=== PATIENT | female | born 2000 | race Caucasian/White ===

== ENCOUNTER 2020-03-16 12:42 | Observation (INO) ==
[2020-03-16 14:02] LABS: Basophils # (auto) 0.01 K/uL (0-0.2); Basophils % (auto) 0.1 %; Eosinophils # (auto) 0.09 K/uL (0-0.5); Eosinophils % (auto) 0.7 %; Hematocrit (blood only) 38.7 % (37-47); Hemoglobin 12.6 g/dL (12.0-16.0); Immature Granulocytes # (auto) 0.02 K/uL (0.00-0.02); Immature Granulocytes % (auto) 0.2 %; Lymphocytes # (auto) 1.26 K/uL (1.2-3.4); Lymphocytes % (auto) 9.8 %; Mean Corpuscular Hgb Conc 32.6 g/dL (32-36); Mean Platelet Volume 10.6 fL (7.4-10.4); Monocytes # (auto) 0.74 K/uL (0.11-0.59); Monocytes % (auto) 5.8 %; Neutrophils % (auto) 83.4 %; Platelet Count 282 K/uL (130-400); RDW Coefficient of Variation 13.4 % (11.5-14.5); RDW Standard Deviation 44.1 fL (36.4-46.3); Red Blood Count 4.35 M/uL (4.2-5.4); White Blood Count 12.82 K/uL (4.8-10.8)
[2020-03-16 14:26] LABS: BUN Creatinine Ratio 8.9 (10-20); Calcium 9.2 mg/dl (8.5-10.1); Est GFR (Non-African American) 100.1; Magnesium 2.4 mg/dl (1.8-2.4)
--- NOTE | 2020-03-16 14:26 | Electrocardiogram Report ---
Test Reason : Blood Pressure : / mmHG Vent. Rate : 056 BPM Atrial Rate : 056 BPM P-R Int : 148 ms QRS Dur : 080 ms QT Int : 418 ms P-R-T Axes : 054 092 030 degrees QTc Int : 403 ms Sinus bradycardia with sinus arrhythmia Rightward axis Borderline ECG No previous ECGs available Confirmed by Jorge Luis Zhao ([id number]) on 03/16/2020 2:25:45 PM Referred By: Confirmed By:Alex Zhao
[2020-03-16 14:28] LABS: Bilirubin,Total 0.7 mg/dl (0.2-1)
[2020-03-16 14:35] LABS: Pregnancy Test, Serum Negative (Negative)
--- NOTE | 2020-03-16 14:36 | Emergency Department Note ---
History of Present Illness General Chief complaint: Abdominal Pain Stated complaint: SEVERE ADB PAIN Time Seen by Provider: 03/16/20 13:21 Source: patient Mode of arrival: ambulatory Limitations: no limitations History of Present Illness Provider complaint: abdominal pain Onset (ago): day(s) 1 Location: abdomen Radiation: abdomen Severity: moderate Pain Consistency: + colicky Maximum Pain Intensity: 6 Current Pain Intensity: 6 Quality: + constant Relieved By: + none Exacerbated By: + movement Associated symptoms: + denies other symptoms Treatments prior to arrival: NSAID This is a 19-year-old female who presents the emergency department complaining of abdominal pain. Patient states last night after dinner she developed some right lower quadrant abdominal pain and thought it was perhaps cramping. Patient states she laid down for a while, and then after sitting up the pain was slightly improved. She was able to go to bed, however around 4 AM woke up with worsening bilateral lower quadrant pain, however still worse on the right-hand side. Patient states she tried to take an Advil, eventually was able to fall back to sleep however when she awoke she still had the pain. Patient had a difficult time getting comfortable and feels most comfortable with her legs pulled and were flexed. Patient denies fevers or chills, nausea or vomiting. Patient denies any recent change in her bowel movements or urine. No recent symptoms. Patient did just finished her period 2 days ago after having taken a course of Provera to help jumpstart her cycles. No prior history of ovarian cyst, endometriosis, uterine fibroids. No known family history of problems. No prior abdominal surgeries. Patient denies any recent change in activity or diet, no known sick contacts or exposures. Pt is not sexually active. Pt seen during a time of high acuity and national emergency pandemic while wearing PPE. Home Medications Home Medications Medication Instructions Recorded Confirmed Type albuterol sulfate 2 puff INHALATION Q4 PRN 03/16/20 03/16/20 History azelaic acid [Finacea] 1 applic TOPICAL DAILY 03/16/20 03/16/20 History clindamycin phosphate [Cleocin T] 1 applic TOPICAL BID 03/16/20 03/16/20 History montelukast 10 mg PO DAILY PRN 03/16/20 03/16/20 History tretinoin [Retin-A] 1 applic TOPICAL HS 03/16/20 03/16/20 History oxycodone-acetaminophen [Percocet] 1 - 2 tab PO Q4H PRN #15 tab 03/17/20 Rx Allergies Allergy/AdvReac Type Severity Reaction Status Date / Time No Known Allergies Allergy Verified 03/16/20 18:45 Past Med/Surg History Social History Smoking Status: Never smoker Do You Dip or Chew Tobacco: No; Hx Alcohol Use: Yes Hx Substance Use: No Preferred Language: Japanese Communication Ability: Effective Beliefs That Will Affect Care: None Current Living Situation: Other Current Living Situation Comment: roommates Feels Safe at Home: Yes Safety Concerns: Feels Safe At This Time Review of Systems See HPI for pertinent positives & negatives. and A total of 10 systems reviewed and were otherwise negative Physical Exam Vital Signs Vital Signs - 24 hr 03/16/20 17:21 03/16/20 18:37 03/16/20 21:15 Temperature 36.4 C L Temperature Source Temporal Artery Scan Pulse Rate [Apical] 65 Pulse Rate [Right Finger] 52 L 54 L Pulse Rhythm [Apical] Regular Respiratory Rate 19 19 16 Respiratory Effort / Characteristics Non-Labored Spontaneous Respiratory Depth Normal Respiratory Pattern Regular Blood Pressure [Left Arm] 103/64 Blood Pressure [Right Arm] 95/61 L 104/62 Blood Pressure Mean [Left Arm] 77 Blood Pressure Mean [Right Arm] 72 76 Blood Pressure Position [Left Arm] Lying Pulse Oximetry 100 95 100 Oxygen Delivery Method Oxymask Oxygen Flow Rate 8 GENERAL: alert, well appearing, well nourished, no distress, non-toxic EYE EXAM: normal conjunctiva, PERRL and EOM's grossly intact OROPHARYNX: no exudate, no erythema, lips, buccal mucosa, and tongue normal and mucous membranes are moist NECK: supple, no nuchal rigidity, no adenopathy, non-tender LUNGS: Clear to auscultation. Normal chest wall mechanics, no w/r/r HEART: no murmurs, S1 normal and S2 normal ABDOMEN: abdomen soft, tenderness in the right lower quadrant at McBurney's point, normo-active bowel sounds, no masses, no guarding, however mild rebound tenderness, negative Rovsing's BACK: Back is symmetrical on inspection and there is no deformity, no midline tenderness, no CVA tenderness. SKIN: no rashes and no bruising UPPER EXTREMITIES: upper extremities are grossly normal. FROM, nml pulses b/l. LOWER EXTREMITIES: No pitting edema. FROM, nml pulses b/l. NEURO EXAM: Normal sensorium, cranial nerves II-XII grossly intact, normal speech, no gross weakness of arms, no gross weakness of legs. Gross sensation intact. Course Course 1535: Pt updated on results so far. Pt drinking for CT. 1542: Case signed out to Dr. Goldman. Awaiting CT. If negative, pt may also need US pelvis. Administered Medications Acetaminophen (Ofirmev) 1,000 mg in 100 mls @ 400 mls/hr IV Q8H TING Stop: 03/20/20 00:59 Last Infusion: 03/17/20 09:56 Dose: 0 mls/hr Documented by: [id number] Admin: 03/17/20 09:22 Dose: 400 mls/hr Documented by: [id number] Infusion: 03/17/20 01:26 Dose: 0 mls/hr Documented by: [id number] Admin: 03/17/20 00:56 Dose: 400 mls/hr Documented by: [id number] Miscellaneous (Azelaic Acid [Finacea]: Order Awaiting Action) 1 ea N/A QS TING Stop: 04/16/20 07:59 Last Admin: 03/17/20 07:18 Dose: Not Given Documented by: [id number] Miscellaneous (Clindamycin Phosphate [Cleocin T]: Order Awaiting Action) 1 ea N/A QS TING Stop: 04/16/20 07:59 Last Admin: 03/17/20 07:19 Dose: Not Given Documented by: [id number] Miscellaneous (Tretinoin [Retin-A]: Order Awaiting Action) 1 ea N/A QS TING Stop: 04/16/20 07:59 Last Admin: 03/17/20 07:19 Dose: Not Given Documented by: [id number] Oxycodone HCl (Oxycodone Hcl Ir 5 Mg Tab (Immediate Release)) 5 mg PO Q6H PRN PRN Reason: Pain Stop: 03/30/20 22:28 Last Admin: 03/17/20 14:31 Dose: 5 mg Documented by: [id number] Discontinued Medications Al Hydrox/Mg Hydrox/Simethicone (Aluminum/Magnesium Susp 30 Ml Udc) 30 ml PO NOW STA Stop: 03/17/20 13:15 Last Admin: 03/17/20 13:22 Dose: 30 ml Documented by: [id number] Fentanyl Citrate (Fentanyl Citrate 100 Mcg/2 Ml Vial) 25 mcg IV Q5M PRN PRN Reason: PACU Use Only-Pain Stop: 03/17/20 03:06 Last Admin: 03/16/20 21:34 Dose: 25 mcg Documented by: [id number] Fentanyl Citrate (Fentanyl Citrate 100 Mcg/2 Ml Vial) Confirm Administered Dose 100 mcg .ROUTE .STK-MED ONE Stop: 03/16/20 21:33 Last Admin: 03/16/20 22:34 Dose: Not Given Documented by: [id number] Hydromorphone HCl (Hydromorphone Inj 0.5 Mg/0.5 Ml Syr) 0.5 mg IV Q15M PRN PRN Reason: Pain Stop: 03/30/20 17:34 Last Admin: 03/16/20 18:54 Dose: 0.5 mg Documented by: [id number] Admin: 03/16/20 17:42 Dose: 0.5 mg Documented by: [id number] Sodium Chloride (Nss 1000ml) 1,000 mls @ 999 mls/hr IV .Q1H1M ONE Stop: 03/16/20 18:28 Last Infusion: 03/16/20 18:38 Dose: 0 mls/hr Documented by: [id number] Admin: 03/16/20 17:42 Dose: 999 mls/hr Documented by: [id number] Cefoxitin Sodium (Mefoxin) 2,000 mg in 60 mls @ 100 mls/hr IV NOW STA Stop: 03/16/20 18:03 Last Infusion: 03/16/20 19:07 Dose: 0 mls/hr Documented by: [id number] Admin: 03/16/20 18:38 Dose: 100 mls/hr Documented by: [id number] Lactated Ringer's (Lr) 1,000 mls @ 75 mls/hr IV .[id number] TING Stop: 04/15/20 22:28 Last Infusion: 03/17/20 13:11 Dose: 0 mls/hr Documented by: [id number] Admin: 03/17/20 11:21 Dose: 75 mls/hr Documented by: [id number] Infusion: 03/17/20 11:21 Dose: 0 mls/hr Documented by: [id number] Admin: 03/16/20 23:48 Dose: 75 mls/hr Documented by: [id number] Ioversol (Ioversol 100ml) 94 ml IV ONCE ONE Stop: 03/16/20 16:58 Last Admin: 03/16/20 16:58 Dose: 94 ml Documented by: [id number] Lidocaine/Epinephrine (Lidocaine/Epinephrine 1% 20 Ml Vial) Confirm Administered Dose 20 ml .ROUTE .STK-MED ONE Stop: 03/16/20 18:53 Last Admin: 03/16/20 20:54 Dose: 14 ml Documented by: [id number] Ondansetron HCl (Ondansetron Inj 2 Mg/Ml 2 Ml Vial) 4 mg IV NOW STA Stop: 03/16/20 17:36 Last Admin: 03/16/20 17:42 Dose: 4 mg Documented by: [id number] Medical Decision Making Differential Diagnosis Differential diagnoses includes but is not limited to gastritis, peptic ulcer disease, GERD, gallbladder disease, pancreatitis, small bowel obstruction, acute coronary syndrome, pericarditis, ischemic bowel, irritable bowel disease, irritable bowel syndrome, appendicitis, diverticulitis, malignancy, hernia, urinary tract infection, torsion, [/ectopic (if female)], perforation, trauma, infectious. Medical Records Attestation: I reviewed the patient's medical records. Home Medications Current Medication List: was personally reviewed by me Laboratory Data Attestation: I reviewed the patient's lab results. Result diagrams: 03/16/20 11:34 03/16/20 11:34 Lab Results 03/16/20 03/16/20 03/16/20 Range/Units 11:34 11:34 11:34 WBC 12.82 H (4.8-10.8) K/uL RBC 4.35 (4.2-5.4) M/uL Hgb 12.6 (12.0-16.0) g/dL Hct 38.7 (37-47) % MCV 89.0 (80-100) fL MCH 29.0 (25-34) pg MCHC 32.6 (32-36) g/dL RDW Std Deviation 44.1 (36.4-46.3) fL RDW Coeff of Kika 13.4 (11.5-14.5) % Plt Count 282 (130-400) K/uL MPV 10.6 H (7.4-10.4) fL Immature Gran % (Auto) 0.2 % Neut % (Auto) 83.4 % Lymph % (Auto) 9.8 % [place] % (Auto) 5.8 % Eos % (Auto) 0.7 % Baso % (Auto) 0.1 % Neut # (Auto) 10.70 H (1.4-6.5) K/uL Lymph # (Auto) 1.26 (1.2-3.4) K/uL [place] # (Auto) 0.74 H (0.11-0.59) K/uL Eos # (Auto) 0.09 (0-0.5) K/uL Baso # (Auto) 0.01 (0-0.2) K/uL Immature Gran # (Auto) 0.02 (0.00-0.02) K/uL Sodium 140 (136-145) mmol/L Potassium 4.0 (3.5-5.1) mmol/L Chloride 107 (98-107) mmol/L Carbon Dioxide 29 (21-32) mmol/L Anion Gap 4.0 (3-11) BUN 7 (7-18) mg/dl Creatinine 0.84 (0.6-1.2) mg/dl Est Cr Clr Drug Dosing 100.0 ml/min Est GFR ( Amer) 116.0 Est GFR (Non-Af Amer) 100.1 BUN/Creatinine Ratio 8.9 L (10-20) Glucose 80 (70-99) mg/dl Calcium 9.2 (8.5-10.1) mg/dl Magnesium 2.4 (1.8-2.4) mg/dl Total Bilirubin 0.7 (0.2-1) mg/dl AST 14 L (15-37) U/L ALT 20 (12-78) U/L Alkaline Phosphatase 76 (45-117) U/L Total Protein 8.0 (6.4-8.2) gm/dl Albumin 4.0 (3.4-5.0) gm/dl Globulin 4.0 (2.5-4.0) gm/dl Albumin/Globulin Ratio 1.0 (0.9-2) Lipase 89 (73-393) U/L HCG, Qual Negative (Negative) Urine Color Urine Appearance (Clear) Urine pH (4.5-7.5) Ur Specific [place] (1.000-1.030) Urine Protein (Negative) Urine Glucose (UA) (Negative) Urine Ketones (Negative) Urine Blood (Negative) Urine Nitrite (Negative) Urine Bilirubin (Negative) Urine Urobilinogen (Negative) Ur Leukocyte Esterase (Negative) Urine WBC (Auto) (0-5) /hpf Urine RBC (Auto) (0-4) /hpf U Hyaline Cast (Auto) (0-5) /lpf U Epithel Cells (Auto) (0-5) /lpf Urine Bacteria (Auto) (Negative) COVID-19 Eval Order SARS-CoV-2, RNA, NAAT (NEGATIVE) 03/16/20 03/16/20 03/16/20 Range/Units 15:38 18:37 18:37 WBC (4.8-10.8) K/uL RBC (4.2-5.4) M/uL Hgb (12.0-16.0) g/dL Hct (37-47) % MCV (80-100) fL MCH (25-34) pg MCHC (32-36) g/dL RDW Std Deviation (36.4-46.3) fL RDW Coeff of Kika (11.5-14.5) % Plt Count (130-400) K/uL MPV (7.4-10.4) fL Immature Gran % (Auto) % Neut % (Auto) % Lymph % (Auto) % [place] % (Auto) % Eos % (Auto) % Baso % (Auto) % Neut # (Auto) (1.4-6.5) K/uL Lymph # (Auto) (1.2-3.4) K/uL [place] # (Auto) (0.11-0.59) K/uL Eos # (Auto) (0-0.5) K/uL Baso # (Auto) (0-0.2) K/uL Immature Gran # (Auto) (0.00-0.02) K/uL Sodium (136-145) mmol/L Potassium (3.5-5.1) mmol/L Chloride (98-107) mmol/L Carbon Dioxide (21-32) mmol/L Anion Gap (3-11) BUN (7-18) mg/dl Creatinine (0.6-1.2) mg/dl Est Cr Clr Drug Dosing ml/min Est GFR ( Amer) Est GFR (Non-Af Amer) BUN/Creatinine Ratio (10-20) Glucose (70-99) mg/dl Calcium (8.5-10.1) mg/dl Magnesium (1.8-2.4) mg/dl Total Bilirubin (0.2-1) mg/dl AST (15-37) U/L ALT (12-78) U/L Alkaline Phosphatase (45-117) U/L Total Protein (6.4-8.2) gm/dl Albumin (3.4-5.0) gm/dl Globulin (2.5-4.0) gm/dl Albumin/Globulin Ratio (0.9-2) Lipase (73-393) U/L HCG, Qual (Negative) Urine Color Yellow Urine Appearance Clear (Clear) Urine pH 7.5 (4.5-7.5) Ur Specific [place] 1.012 (1.000-1.030) Urine Protein Negative (Negative) Urine Glucose (UA) Negative (Negative) Urine Ketones Negative (Negative) Urine Blood Negative (Negative) Urine Nitrite Negative (Negative) Urine Bilirubin Negative (Negative) Urine Urobilinogen Negative (Negative) Ur Leukocyte Esterase Trace H (Negative) Urine WBC (Auto) 1-5 (0-5) /hpf Urine RBC (Auto) 0-4 (0-4) /hpf U Hyaline Cast (Auto) 1-5 (0-5) /lpf U Epithel Cells (Auto) >30 H (0-5) /lpf Urine Bacteria (Auto) Negative (Negative) COVID-19 Eval Order Covid19 [facility]Now [facility] SARS-CoV-2, RNA, NAAT NEGATIVE (NEGATIVE) Blood Pressure Blood Pressure Findings: Normal blood pressure MDM Narrative Patient presenting here with story concerning for lower quadrant abdominal pain worse on the right. Patient with no prior surgical history, no history of gynecologic problems and no recent or BARYTES GRINDER symptoms. Patient found with lab results to have mild leukocytosis, and were otherwise reassuring. Due to concer n for appendicitis, a CT of the abdomen and pelvis with contrast was ordered. Patient signed out awaiting CT and reevaluation. I did discuss with the patient that if the CT was negative she may benefit from additional pelvic ultrasound to rule out other gynecologic pathology although my suspicion for this is lower at this time. Patient remained hemodynamically stable and afebrile in the emergen cy room. Patient is not anticoagulated. Patient denies any other illness or exposure to coronavirus. I have a low suspicion for GI bleed, perforation, diverticulitis, mesenteric ischemia, bowel obstruction, volvulus, ectopic, or vascular etiology. An order was placed for continuous cardiac monitoring. The monitor shows a rate of _68_ with _normal sinus_ rhythm. Impression & Plan Abdominal pain Discharge Plan Visit Data Chief Complaint: Abdominal Pain Stated Complaint: SEVERE ADB PAIN ED Provider: Franklin Chen Discharge Problem: Abdominal pain Patient Disposition: Still a Patient Discharge Instructions Interventions: ED Discharge Assessment Last Done: 03/16/20 19:10 Discharge Problem: Abdominal pain Qualifiers: Abdominal location: lower abdomen, unspecified Qualified Code(s): R10.30 - Lower abdominal pain, unspecified
[2020-03-16 15:47] LABS: Appearance Urine Clear (Clear); Bacteria Urine Automated Negative (Negative); Bilirubin Urine Negative (Negative); Blood Urine Negative (Negative); Color Urine Yellow; Epithelial Cell Urine Auto >30 /lpf (0-5); Glucose Urine UA Negative (Negative); Ketones Urine Negative (Negative); Leukocyte Esterase Urine Trace (Negative); Nitrite Urine Negative (Negative); Protein Urine Negative (Negative); RBC Urine Automated 0-4 /hpf (0-4); Specific Gravity Urine 1.012 (1.000-1.030); Urobilinogen Urine Negative (Negative); pH Urine 7.5 (4.5-7.5)
[2020-03-16] MEDS ORDERED: IOVERSOL 100ml IV ONE (16:57)
--- NOTE | 2020-03-16 17:13 | CT Scan Report ---
ABDOMEN AND PELVIS CT WITH IV AND ORAL CONTRAST CT DOSE: 300.55 mGy.cm HISTORY: Right lower quadrant abdominal pain. TECHNIQUE: Multiaxial CT images of the abdomen and pelvis were performed following the use of intrave nous and oral contrast. A dose lowering technique was utilized adhering to the principles of ALARA. COMPARISON STUDY: None. FINDINGS: The lung bases are clear. No pneumoperitoneum. No pneumatosis. No fractures within the visu alized osseous structures. There is a 2 mm hypodense lesion within the right hepatic dome. This is te chnically too small to characterize but favors a cyst. The gallbladder, pancreas, spleen, adrenal gla nds, and kidneys are within normal limits. No hydronephrosis. No retroperitoneal lymphadenopathy. The main portal vein is patent. The bladder, uterus, and ovaries are unremarkable. Trace pelvic free flu id. No evidence for bowel obstruction. The appendix is identified within the right lower quadrant on images 304 through 342. The tip is distended up to 9 mm. There is mild wall thickening and mild peria ppendiceal fat stranding. The tip is filled with fluid. Therefore, findings are consistent with a mil d acute appendicitis. IMPRESSION: 1. Above findings consistent with mild acute appendicitis. 2. Trace pelvic free fluid. ACT 112: Negative or not required by law. Electronically signed by: Wilfredo Sellers M.D. 03/16/2020 5:11 PM
[2020-03-16] MEDS ORDERED: cefOXitin 2,000 MG/60 ML BAG IV STA (17:28)
[2020-03-16] MEDS ORDERED: SODIUM CHLORIDE 0.9% 1000ML 1,000 ML IV ONE (17:28)
[2020-03-16] MEDS ORDERED: ONDANSETRON INJ 2 MG/ML 2 ML VIAL IV STA (17:35)
--- NOTE | 2020-03-16 17:37 | Emergency Department Note ---
ED Visit Note The patient was taken in signout from Dr. Hewitt at the change of shift. Please see that note for details. The patient was pending CT scan of the abdomen pelvis due to concern for appendicitis. CT returned consistent with mild appendicitis. Patient was informed. I gave my usual and customary discussion regarding this issue. Normal saline, Mefoxin, Dilaudid and Zofran were ordered. Consultation made with general surgery for further management. Patient was evaluated in the ER by Dr. Oscar Vo for further management. .
[2020-03-16] MEDS: HYDROmorphone INJ 0.5 MG/0.5 ML SYR IV PRN ×2 (17:42→18:54)
--- NOTE | 2020-03-16 18:45 | History & Physical Report ---
Date of Service March 16, 2020 Assessment & Plan (1) Appendicitis, acute: Acute appendicitis by CAT scan and clinically was discussed with the patient and also long discussion with her mother who is [facility] by phone Options of therapy would also be acute appendicitis treated with antibiotics for period of time but certainly this has a high recurrence rate that eventually she will be of another attack for given her overall good health I recommend to proceed with laparoscopic appendectomy Risk and complications of the surgery including bleeding infection converting to an open procedure injury to other organs was explained to the patient and she would like to proceed accordingly also discussed with the other and patient the anticipated recovery time Covid test rapid test is pending at this time Preop antibiotics will be given we will put sequential compression stockings All questions were answered to her and her mother Present on Admission?: Yes History of Present Illness 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 last evening progressive became more significant and came into the emergency room where she was found to have by CAT scan acute appendicitis 9 mm appendix with periappendiceal infiltration She denies any vomiting although somewhat nauseated she had a small bite of food at 11 this morning and has not had anything to eat or drink except slight water about 5:00 Past history is pretty much unremarkable not having any other surgeries she does have some abnormal cramping with her menses no longstanding Primary Care Provider: NO PCP Home Medications Home Medications Medication Instructions Recorded Confirmed Type albuterol sulfate 2 puff INHALATION Q4 PRN 03/16/20 03/16/20 History azelaic acid [Finacea] 1 applic TOPICAL DAILY 03/16/20 03/16/20 History clindamycin phosphate [Cleocin T] 1 applic TOPICAL BID 03/16/20 03/16/20 History montelukast 10 mg PO DAILY PRN 03/16/20 03/16/20 History tretinoin [Retin-A] 1 applic TOPICAL HS 03/16/20 03/16/20 History Past Med/Surg History Social History Smoking Status: Never smoker Feels Safe at Home: Yes Physical Exam Physical Exam: She is alert coherent friend at the bedside appears comfortable Constitutional: WD/WN, vitals as above well developed, well nourished and + thin Eyes: Sclera nonicteric conjunctiva slightly injected ENMT: Grossly normal Neck: trachea midline, no thyromegaly Respiratory: normal respiratory effort Cardiovascular: Rate/Rhythm: regular rate Chest (Breasts): Chest: normal inspection of chest Gastrointestinal (Abdomen): No abdominal distention pain localized to right lower quadrant with rebound at McBurney's point Results & Data Results & Data ([facility]) Vital Signs (Past 12 Hours) Vital Signs Temp Pulse Pulse Resp BP BP Pulse Ox 03/16/20 17:21 52 L 19 95/61 L 100 03/16/20 12:58 36.7 C 92 H 18 101/67 98 PG Care Time/CCT Total # of Minutes Spent Total Time Spent with Patient: Total time spent is greater than 50% in coordination of care (as documented) at patient's floor/unit and/or counseling patient: Coding Level of Care Code 96383 OBS Care - Level 3 Diagnoses Appendicitis, acute K35.80
[2020-03-16] MEDS ORDERED: LIDOCAINE/EPINEPHRINE 1% 20 ML VIAL ONE (18:52)
[2020-03-16] MEDS ORDERED: ONDANSETRON INJ 2 MG/ML 2 ML VIAL ONE (18:57)
[2020-03-16] MEDS ORDERED: NEOSTIGMINE METHYLSULFATE 5 MG/5 ML SYR ONE (18:57)
[2020-03-16] MEDS ORDERED: SUCCINYLCHOLINE CHLORIDE 20 MG/ML 10 ML VIAL IV ONE (18:57)
[2020-03-16] MEDS ORDERED: GLYCOPYRROLATE 0.2 MG/ML VIAL ONE (18:57)
[2020-03-16] MEDS ORDERED: PROPOFOL IV EMULSION 10 MG/ML 20 ML VIAL IV ONE (18:57)
[2020-03-16] MEDS ORDERED: ROCURONIUM BROMIDE 10 MG/ML 5 ML VIAL IV ONE (18:57)
[2020-03-16] MEDS ORDERED: MIDAZOLAM HCL 1 MG/ML 2ML VIAL ONE (18:57)
[2020-03-16] MEDS ORDERED: DEXAMETHASONE SOD INJ 4 MG/ML VIAL ONE (18:57)
[2020-03-16] MEDS ORDERED: fentaNYL citrate 100 MCG/2 ML VIAL ONE ×2 (18:58→21:32)
[2020-03-16] MEDS ORDERED: HYDROmorphone INJ 1 MG/ML SYRINGE IV PRN (19:06)
[2020-03-16] MEDS ORDERED: ATROPINE SULFATE 0.1 MG/ML 10ML SYR IV PRN (19:06)
[2020-03-16] MEDS ORDERED: ePHEDrine sulfate 50 MG/ML AMP IV PRN (19:06)
[2020-03-16] MEDS ORDERED: ONDANSETRON INJ 2 MG/ML 2 ML VIAL IV PRN ×2 (19:06→22:29)
[2020-03-16] MEDS ORDERED: fentaNYL citrate 100 MCG/2 ML VIAL IV PRN (19:06)
--- NOTE | 2020-03-16 19:08 | Anesthesiology Consultation ---
Date of Service March 16, 2020 Assessment & Plan (1) Encounter for pre-operative examination: Chart Review Chart Review: Acceptable Risk for Surgery and Patient NOT seen in Pre Admission Testing covid neg 03/16/2020 Consults Requested none History Surgery Operation Date: 03/16/20 19:15 Proposed Procedures p Laparoscopic Appendectomy(Not Applicable) - Oscar Vo MD Height/Weight Height: 5 ft 6 in Weight: 61.8 kg Allergies Allergy/AdvReac Type Severity Reaction Status Date / Time No Known Allergies Allergy Verified 03/16/20 18:45 Medications Home Medications Medication Instructions Recorded Confirmed Last Taken albuterol sulfate 2 puff INHALATION Q4 PRN 03/16/20 03/16/20 Unknown azelaic acid [Finacea] 1 applic TOPICAL DAILY 03/16/20 03/16/20 Unknown clindamycin phosphate [Cleocin T] 1 applic TOPICAL BID 03/16/20 03/16/20 Unknown montelukast 10 mg PO DAILY PRN 03/16/20 03/16/20 Unknown tretinoin [Retin-A] 1 applic TOPICAL HS 03/16/20 03/16/20 Unknown Active Medications Generic Name Dose Route Start Last Admin Trade Name Freq PRN Reason Stop Dose Admin Hydromorphone HCl 0.5 mg 03/16/20 17:35 03/16/20 18:54 Hydromorphone Inj 0.5 Mg/0.5 Ml Syr IV 03/30/20 17:34 0.5 mg Q15M PRN Administration Pain NPO Date Last Intake of Fluids: 03/16/20 Time Last Intake of Fluids: 17:00 Date Last Intake of Solids: 03/15/20 Past Medical History healthy Exercise / Class Metabolic Activity 1 > 8 Run/Swim/Ski/Tennis Past Anesthesia History No Hx of Anesthesia Complications and No Family Hx of Anesthesia Complications History of PONV No Hx of PONV and No Hx of Motion Sickness Social History Smoking Status: Never smoker Do You Dip or Chew Tobacco: No Hx Alcohol Use: Yes Physical Exam Vital Signs Last Vital Signs Temp 36.7 C 03/16/20 12:58 Pulse 54 L 03/16/20 18:37 Resp 19 03/16/20 18:37 BP 104/62 03/16/20 18:37 Pulse Ox 95 03/16/20 18:37 Testing Laboratory Results 03/16/20 11:34 03/16/20 11:34 Urine Color Yellow 03/16/20 15:38 Urine Appearance Clear (Clear) 03/16/20 15:38 Urine pH 7.5 (4.5-7.5) 03/16/20 15:38 Ur Specific [place] 1.012 (1.000-1.030) 03/16/20 15:38 Urine Protein Negative (Negative) 03/16/20 15:38 Urine Glucose (UA) Negative (Negative) 03/16/20 15:38 Urine Ketones Negative (Negative) 03/16/20 15:38 Urine Nitrite Negative (Negative) 03/16/20 15:38 Ur Leukocyte Esterase Trace (Negative) H 03/16/20 15:38 Urine WBC (Auto) 1-5 /hpf (0-5) 03/16/20 15:38 Urine RBC (Auto) 0-4 /hpf (0-4) 03/16/20 15:38 U Hyaline Cast (Auto) 1-5 /lpf (0-5) 03/16/20 15:38 U Epithel Cells (Auto) >30 /lpf (0-5) H 03/16/20 15:38 Urine Bacteria (Auto) Negative (Negative) 03/16/20 15:38 Other Testing ABDOMEN AND PELVIS CT WITH IV AND ORAL CONTRAST CT DOSE: 300.55 mGy.cm HISTORY: Right lower quadrant abdominal pain. TECHNIQUE: Multiaxial CT images of the abdomen and pelvis were performed following the use of intravenous and oral contrast. A dose lowering technique was utilized adhering to the principles of ALARA. COMPARISON STUDY: None. FINDINGS: The lung bases are clear. No pneumoperitoneum. No pneumatosis. No fractures within the visualized osseous structures. There is a 2 mm hypodense lesion within the right hepatic dome. This is technically too small to characterize but favors a cyst. The gallbladder, pancreas, spleen, adrenal glands, and kidneys are within normal limits. No hydronephrosis. No retroperitoneal lymphadenopathy. The main portal vein is patent. The bladder, uterus, and ovaries are unremarkable. Trace pelvic free fluid. No evidence for bowel obstruction. The appendix is identified within the right lower quadrant on images 304 through 342. The tip is distended up to 9 mm. There is mild wall thickening and mild periappendiceal fat stranding. The tip is filled with fluid. Therefore, findings are consistent with a mild acute appendicitis. IMPRESSION: 1. Above findings consistent with mild acute appendicitis. 2. Trace pelvic free fluid.
--- NOTE | 2020-03-16 20:55 | Post Operative Brief Note ---
PG Immediate Post Op with CF Date of Surgery March 16, 2020 Pre & Post Diagnosis Operation Date: 03/16/20 19:15 Pre-Op Diagnosis: Acute Appendicitis Post-Op Diagnosis: Acute Appendicitis I identified the patient and participated in the time-out.: Yes Procedure Operation Date: 03/16/20 19:15 Actual Procedures p Laparoscopic Appendectomy(Not Applicable) - Oscar Vo MD Surgeon Oscar Vo MD Mixed Liv[employer] Worker Marquis BRAGA Estimated Blood Loss 5 Findings Consistent with Post-Op Diagnosis Specimens Specimen Description: A. Appendix
--- NOTE | 2020-03-16 21:23 | Operative Report ---
PG Post Operative Report Pre & Post Diagnosis Operation Date: 03/16/20 19:15 Pre-Op Diagnosis: Acute Appendicitis Post-Op Diagnosis: Acute Appendicitis I identified the patient and participated in the time-out.: Yes Procedure Operation Date: 03/16/20 19:15 Actual Procedures p Laparoscopic Appendectomy(Not Applicable) - Oscar Vo MD The patient was brought into the operating theater supine position general endotracheal anesthesia timeout for Covid protocol the abdomen was prepped Betadine solution properly draped patient had been given preoperative antibiotics a timeout was had patient was identified made a small incision supraumbilically sufficient to place a Veress needle followed by CO2 to 15 mmHg followed by 5 mm trocar camera followed we briefly looked at the right lower quadrant and were able to see that the cecum was pretty mobile and actually extended towards the pelvic brim but no inflammation could be seen at this point on direct visualization a 5 mm right upper quadrant port was placed with preemptive local analgesic and I was able to elevate the cecal cap I can see the base of the appendix that was inflamed and further inspection of the appendix was long and it was going down towards the pelvic brim this point I converted the 5 mm umbilical trocar site by enlarging the incision dilating the track with a hemostat and placed an 11 mm trocar and direct visualization the 5 mm trocar was then placed in left lower quadrant with preemptive local analgesic camera was then placed in the left lower quadrant and we were able to turn the patient in the left lateral we elevated the cecum is sufficient enough that we could see acutely inflamed appendix with no fibrin exudate the mesentery was thickened to the appendix we elevated up sufficiently by first dividing some fibrous bands that were at the base of the appendix to the cecum then we created a window between the base of the appendix and the mesoappendix sufficiently to place a purple Endo MAGEN which we fired right at the base of the appendix to the cecum the staple line was free of any oozing and appeared secure the mesoappendix was then freed up from surrounding tissue and were able to fire another application of the purple MAGEN the appendix was placed in an Endopouch taken out intact through the umbilical port 11 mm trocar was then repositioned in place and were able to irrigate the right lower quadrant we could see the terminal ileum the staple lines of the mesoappendix away from it there is minimal oozing to the staple line to the mesoappendix we just irrigated them seem to be free of any bleeding we then returned the patient in reverse Trendelenburg irrigated the right lower quadrant area down to the pelvic and suctioned it the camera was then placed in the right upper quadrant trocar site to visualize the left lower quadrant trocar which was free of any bleeding and also the umbilical trocar left lower quadrant was removed there was no bleeding appreciated the patient was very thin so in the site where the trocar had gone into the preperitoneum there was a little ecchymosis but nothing significant we could see visualized in the preperitoneal space the size of the ecchymosis about 3 cm nonexpanding then we removed the umbilical trocar and last the right upper quadrant trocar and umbilical area was checked prior to pulmonary there was no bleeding this point fascial stitch of 0 Vicryl was used to close the fascia. Umbilical area with [id number] times two 4-0 Monocryl subcuticularly Steri-Strips applied procedure was tolerated well by the patient estimated blood loss 5 cc addendum Marquis Pimentel physician occupational therapy assistant was present throughout the case and helped with exposure camera work and wound closure Surgeon Oscar Vo MD Saddle Stitch Operator Marquis Pimentel PA Estimated Blood Loss 5 Findings Consistent with Post-Op Diagnosis Specimens appendix Description of Procedure jerrica I attest to the content of the Intraoperative Record and any orders documented therein. Any exceptions are noted below.
--- NOTE | 2020-03-16 21:28 | Anesthesiology Progress Note ---
Date of Service March 16, 2020 Anesthesia Post Procedure Vital Signs Vital Signs: Temp Pulse Pulse Resp BP BP Pulse Ox 03/16/20 18:37 54 L 19 104/62 95 03/16/20 17:21 52 L 19 95/61 L 100 03/16/20 12:58 36.7 C 92 H 18 101/67 98 Transfer of Care Handoff Completed per policy Notes Mental Status: alert / awake / arousable and participated in evaluation Patient Amnestic to Procedure: Yes Nausea / Vomiting: adequately controlled Pain: adequately controlled Airway Patency, RR, SpO2: stable & adequate BP & HR: stable & adequate Hydration State: stable & adequate Anesthetic Complications: no major complications apparent and Pt Satisfied with anesthetic care
[2020-03-16] MEDS ORDERED: MONTELUKAST SODIUM 10 MG TABLET PO PRN (22:29)
[2020-03-16] MEDS ORDERED: ALBUTEROL HFA 8 GM INHALER INH PRN (22:29)
[2020-03-16] MEDS ORDERED: oxyCODONE HCL IR 5 MG TAB (IMMEDIATE RELEASE) PO PRN (22:29)
[2020-03-16] MEDS ORDERED: MoRPHine SULFATE 2 MG/ML CARP IV PRN (22:29)
[2020-03-16] MEDS: LACTATED RINGER'S 1,000 ML IV SCH (23:48)
[2020-03-17] MEDS: ACETAMINOPHEN 1,000 MG/100 ML VIAL IV SCH ×2 (00:56→09:22)
--- NOTE | 2020-03-17 08:07 | Surgery Progress Note ---
Date of Service March 17, 2020 Assessment & Plan (1) Appendicitis, acute: Discussed the operative findings with the mother I had called her postop on her way friend from [place] all questions were answered We will check on the patient later this morning or early afternoon she is fine s he certainly can be discharged and instructions will be given at that time according to the mother they are planning to stay in town rather than go back to [place] and I anticipate the patient will be able to go back to classes following Saturday since most of her classes are online Admission and Anticipated Discharge Date Admission Date: March 16, 2020 Subjective Some abdominal discomfort as expected 12 hours postop Physical Exam Physical Exam: Is alert coherent abdomen softly distended trocar sites without any bleeding Steri-Strips intact Mother at bedside Results & Data ([facility]) Vital Signs (Past 12 Hours) Vital Signs Temp Pulse Pulse Resp BP BP Pulse Ox 03/17/20 07:51 36.6 C 47 L 15 83/48 L 98 03/17/20 06:12 36.6 C 54 L 16 101/61 96 03/17/20 02:01 36.8 C 51 L 14 81/50 L 98 03/17/20 00:37 36.4 C L 49 L 14 101/64 97 03/16/20 23:32 36.5 C 47 L 14 98/57 L 100 03/16/20 23:04 36.6 C 48 L 18 104/66 100 03/16/20 22:50 36.7 C 46 L 16 100/63 99 03/16/20 22:40 36.7 C 46 L 14 100/63 99 03/16/20 22:15 43 L 12 101/62 100 03/16/20 22:05 46 L 12 98/68 L 100 03/16/20 21:55 36.5 C 44 L 12 103/56 L 100 03/16/20 21:45 49 L 12 101/60 100 03/16/20 21:35 48 L 12 103/48 L 100 03/16/20 21:25 52 L 12 100/52 L 100 03/16/20 21:15 36.4 C L 65 16 103/64 100 PG Care Time/CCT Total # of Minutes Spent Total Time Spent with Patient: Total time spent is greater than 50% in coordination of care (as documented) at patient's floor/unit and/or counseling patient: Coding Level of Care Code None Diagnoses Appendicitis, acute K35.80
--- NOTE | 2020-03-17 09:02 | Anesthesiology Progress Note ---
Date of Service March 17, 2020 Anesthesia Post Procedure Vital Signs Vital Signs: Temp Pulse Pulse Pulse Resp BP BP 03/17/20 07:51 36.6 C 47 L 15 83/48 L 03/17/20 06:12 36.6 C 54 L 16 03/17/20 02:01 36.8 C 51 L 14 81/50 L 03/17/20 00:37 36.4 C L 49 L 14 101/64 03/16/20 23:32 36.5 C 47 L 14 98/57 L 03/16/20 23:04 36.6 C 48 L 18 104/66 03/16/20 22:50 36.7 C 46 L 16 100/63 03/16/20 22:40 36.7 C 46 L 14 100/63 03/16/20 22:15 43 L 12 101/62 03/16/20 22:05 46 L 12 98/68 L 03/16/20 21:55 36.5 C 44 L 12 103/56 L 03/16/20 21:45 49 L 12 101/60 03/16/20 21:35 48 L 12 103/48 L 03/16/20 21:25 52 L 12 100/52 L 03/16/20 21:15 36.4 C L 65 16 103/64 03/16/20 18:37 54 L 19 03/16/20 17:21 52 L 19 03/16/20 12:58 36.7 C 92 H 18 101/67 BP Pulse Ox 03/17/20 07:51 98 03/17/20 06:12 101/61 96 03/17/20 02:01 98 03/17/20 00:37 97 03/16/20 23:32 100 03/16/20 23:04 100 03/16/20 22:50 99 03/16/20 22:40 99 03/16/20 22:15 100 03/16/20 22:05 100 03/16/20 21:55 100 03/16/20 21:45 100 03/16/20 21:35 100 03/16/20 21:25 100 03/16/20 21:15 100 03/16/20 18:37 104/62 95 03/16/20 17:21 95/61 L 100 03/16/20 12:58 98 Pain Intensity Abdomen: Pain Intensity: 7 Notes Mental Status: alert / awake / arousable and participated in evaluation Nausea / Vomiting: adequately controlled Pain: adequately controlled Airway Patency, RR, SpO2: stable & adequate BP & HR: stable & adequate Hydration State: stable & adequate
[2020-03-17] MEDS: LACTATED RINGER'S 1,000 ML IV SCH (11:21)
[2020-03-17] MEDS ORDERED: ACETAMINOPHEN 500 MG TAB PO PRN (13:01)
[2020-03-17] MEDS ORDERED: ALUMINUM/MAGNESIUM SUSP 30 ML UDC PO STA (13:14)
--- NOTE | 2020-03-18 14:03 | Discharge Summary ---
Date of Service March 18, 2020 Principal Diagnosis Acute appendicitis Discharge Exam Gastrointestinal (Abdomen) Inspection/Auscultation: + abdominal surgical incision (clean, dry) Percussion/Palpation: abdomen soft Discharge Data Allergies Allergy/AdvReac Type Severity Reaction Status Date / Time No Known Allergies Allergy Verified 03/16/20 18:45 Procedures Performed Operation Date: 03/16/20 19:15 Actual Procedures p Laparoscopic Appendectomy(Not Applicable) - Oscar Vo MD Ordered Studies 03/16/20 14:26 CT abd pelvis oral and IV con Stat Hospital Course (1) Appendicitis, acute: 19 y/o female presented to the ER with abdominal pain. White count was 12,[address] was consistent with acute appendicitis. She was taken to the operating room that evening for laparoscopic appendectomy and transferred to the surgical floor for overnight observation. In the morning she was able to advance diet and tolerate oral analgesics. She was stable for discharge home in the afternoon. Total Time Total Time Spent Total Time Spent (In Minutes): 10 Discharge Plan Discharge Items Patient Disposition: Home - Self-Care Reason For Visit: SEVERE ADB PAIN Discharge Diagnosis: laparoscopic appendectomy Activity: Per Instructions section Lifting: No more than 10 pounds Bathing Comment: may shower; no soaking in tubs/pools Exercise/Sports: Gradually increase as tolerated Driving/Machine Use: do not resume driving while taking narcotics for pain Non-emergency contact: Surgeon Call non-emergency contact if: you have any medication questions, your symptoms worsen, your pain is not controlled, your pain is worsening, your pain is unusual for you, you have a fever, your temperature is above 101.5, your wound has increased redness, your wound has increased drainage and your wound pain has increased Follow-up/Referrals: Oscar Vo MD [Surgeon] - (Please call if you have any questions or concerns) PCP,NO [Primary Care Provider] - Diet: Regular Addtl Attending Provider Instructions: You have small white bandages over your incisions called steri strips that should remain in place. You may shower with these on. They will tend to fall off on their own within 7-10 days. You can follow-up with your PCP in 1-2 weeks or call our office with any con cerns Pending Studies at Discharge: Yes Studies:: surgical pathology Stand-Alone Forms: My [facility], Opioid Pain Management, Work/School Release (Inpt), Smoking Cessation Medications and DC Order Prescriptions: New oxycodone-acetaminophen [Percocet] 5-325 mg tablet 1 - 2 tab PO Q4H PRN (Reason: pain, initial therapy, max 6 daily) Qty: 15 RF: 0 Continued tretinoin [Retin-A] 0.025 % gel 1 applic TOPICAL HS RF: 0 montelukast 10 mg tablet 10 mg PO DAILY PRN (Reason: allergies) RF: 0 albuterol sulfate 90 mcg/actuation HFA aerosol inhaler 2 puff INHALATION Q4 PRN (Reason: sob) RF: 0 clindamycin phosphate [Cleocin T] 1 % lotion 1 applic TOPICAL BID RF: 0 azelaic acid [Finacea] 15 % gel 1 applic TOPICAL DAILY RF: 0 Discharge Orders: Discharge Order (Routine); Ordered 03/17/20 Ordered By: Bigg Gu/Other Patient Handouts: Preventing Deep Vein Thrombosis Admission Data Admit Date/Time: 03/16/20 21:23 Attending Provider: Oscar Vo Admit Provider: Oscar Vo Primary Care Provider: PCP,NO Other Interventions: Discharge Summary Assessment (RN) Last Done: 03/17/20 13:17 Coding Level of Care Code D/C Day Management <30 mins Diagnoses Appendicitis, acute K35.80
== END 2020-03-17 17:43 | disposition home or self-care (01) ==
LOC: ED 12:42 → ASU 19:10 → 3E 19:10
DX: K35.80 Unspecified acute appendicitis